=== PATIENT | female | born 1955 | race Caucasian/White ===

== ENCOUNTER → 2019-06-06 | Day surgery (SDC) | payer BC ==
--- NOTE | 2019-06-07 18:28 | PATH ---
Surgical Pathology Report Patient Name: ANN ESPINAL [facility]. Rec. #: [id number] /Age/Gender: 1955 (Age: 64) / F Account: [id number] Location: [facility] Taken: 06/06/2019 Received: 06/06/2019 Reported: 06/07/2019 Physicians: Charanjit Srinivasan M.D. Specimen(s) Received A: RIGHT BREAST SPECIMEN-WITH CALCIFICATIONS B: RIGHT BREAST SPECIMEN-WITHOUT CALCIFICATIONS Clinical History Nonpalpable lesion Suspicious Mammographic findings Final Diagnosis A. BREAST SPECIMEN, RIGHT, WITH CALCIFICATIONS, STEREOTACTIC CORE BIOPSY: BENIGN PREDOMINANTLY FATTY BREAST TISSUE WITH FOCAL FIBROSIS, HISTIOCYTIC INFILTRATE, FOCAL FAT NECROSIS, AND ASSOCIATED MICROCALCIFICATIONS. B. BREAST SPECIMEN, RIGHT, WITHOUT CALCIFICATIONS, STEREOTACTIC CORE BIOPSY: BENIGN PREDOMINANTLY FATTY BREAST TISSUE WITH ASSOCIATED MICROCALCIFICATIONS. Electronically Signed Marilee Deleon M.D. Gross Description A. Received in formalin labeled "right breast specimen with calcifications" are 6 cabrales-yellow, cylindrical portions of fibroadipose tissue ranging from 0.5-1.5 cm in length and averaging 0.3 cm diameter. The specimens are submitted in toto in one cassette. B. Received in formalin labeled "right breast without calcifications" are multiple cabrales-yellow, cylindrical portions of fibroadipose tissue measuring 2.5 x 2 x 0.3 cm in aggregate. The specimens are submitted in toto in one cassette. Time to formalin fixation: 5 minutes Total formalin fixation time: Between 8-9 hours. MLFINN/06/06/2019 ally/06/06/2019
== END | disposition home or self-care (01) ==
LOC: FMAMMOTONE 08:49
PROVIDERS: ATTEND Surgery Surgical Oncology
PROC: 0HBT3ZX Excision of Right Breast, Percutaneous Approach, Diagnostic (ICD-10-PCS; principal; 2019-06-06)
DX: N60.41 Mammary duct ectasia of right breast (principal); N64.1 Fat necrosis of breast; N64.89 Other specified disorders of breast; R92.1 Mammographic calcification found on diagnostic imaging of breast
CPT/HCPCS: 19081; 87899; 88305-TC; A4648

== ENCOUNTER 2021-12-21 08:27 | Day surgery (SDC) | payer BC ==
[2021-12-21] MEDS ORDERED: KETOROLAC TROMETHAMINE 0.5% EYE DROP 1 DROP DROPS ONE (08:38)
[2021-12-21] MEDS ORDERED: TROPICAMIDE 1% OPHTH SOLN 15 ML BOTTLE ONE (08:38)
[2021-12-21] MEDS ORDERED: CYCLOPENTOLATE HCL 1% OPHTH SOLN 2 ML BOTTLE ONE (08:38)
[2021-12-21] MEDS ORDERED: OFLOXACIN 0.3% OPHTHALMIC SOLUTION 5 ML BOTTLE ONE (08:38)
[2021-12-21] MEDS ORDERED: PHENYLEPHRINE 2.5% OPHTH SOLN 15 ML BOTTLE ONE (08:38)
[2021-12-21] MEDS: OFLOXACIN 0.3% OPHTHALMIC SOLUTION 5 ML BOTTLE OS SCH ×3 (08:50→09:00)
[2021-12-21] MEDS: PHENYLEPHRINE 2.5% OPHTH SOLN 15 ML BOTTLE OS SCH ×3 (08:50→09:00)
[2021-12-21] MEDS: KETOROLAC TROMETHAMINE 0.5% EYE DROP 1 DROP DROPS OS SCH ×3 (08:50→09:00)
[2021-12-21] MEDS: CYCLOPENTOLATE HCL 1% OPHTH SOLN 2 ML BOTTLE OS SCH ×3 (08:50→09:00)
[2021-12-21] MEDS: TROPICAMIDE 1% OPHTH SOLN 15 ML BOTTLE OS SCH ×3 (08:50→09:00)
[2021-12-21 08:56] VITALS: BMI 39.3
[2021-12-21] MEDS ORDERED: MIDAZOLAM HCL 2 MG/2 ML SINGLE DOSE VIAL ONE ×2 (10:05)
[2021-12-21] MEDS ORDERED: ACETAMINOPHEN 325 MG TABLET (FP) PO PRN (10:39)
[2021-12-21 10:51] VITALS: TEMP 98.4
[2021-12-21] MEDS ORDERED: POVIDONE-IODINE 5% OPHTHALMIC PREP 30 ML SOLUTION ONE (10:51)
[2021-12-21] MEDS ORDERED: BACITRACIN/POLYMYXIN OPH OINT 3.5 GM TUBE ONE (10:51)
[2021-12-21] MEDS ORDERED: BETAXOLOL HCL 0.25% OPHTHALMIC 10 ML DROPSBTL ONE (10:51)
[2021-12-21] MEDS ORDERED: TETRACAINE 0.5% OPHTH SOLN 2 ML BOTTLE ONE (10:51)
[2021-12-21] MEDS ORDERED: EPI-SHUGARCAINE (EPINEPHRINE 0.025% & LIDOCAINE-PF 0.75%) 4ML ONE (10:51)
[2021-12-21] MEDS ORDERED: ACETYLCHOLINE 1:100 INTRA-OCUL 20 MG/2 ML KIT ONE (10:51)
[2021-12-21] MEDS ORDERED: NEO/POLYMYX B SULF/DEXAMETH OPHTHALMIC 5ML BOTTLE ONE (10:51)
[2021-12-21 11:09] VITALS: BP 147/77; PULSE 78
== END 2021-12-21 11:59 | disposition home or self-care (01) ==
LOC: FASU 08:27
PROVIDERS: ATTEND Ophthalmology
PROC: 08RK3JZ Replacement of Left Lens with Synthetic Substitute, Percutaneous Approach (ICD-10-PCS; principal; 2021-12-21 10:15)
DX: H26.9 Unspecified cataract (principal)
CPT/HCPCS: 66984; V2632

== ENCOUNTER 2022-01-04 06:31 | Day surgery (SDC) | payer BC ==
[2022-01-04 06:51] VITALS: TEMP 97.8; BMI 39.3
[2022-01-04] MEDS ORDERED: PHENYLEPHRINE 2.5% OPHTH SOLN 15 ML BOTTLE ONE (06:54)
[2022-01-04] MEDS ORDERED: KETOROLAC TROMETHAMINE 0.5% EYE DROP 1 DROP DROPS ONE (06:54)
[2022-01-04] MEDS ORDERED: TROPICAMIDE 1% OPHTH SOLN 15 ML BOTTLE ONE (06:54)
[2022-01-04] MEDS ORDERED: OFLOXACIN 0.3% OPHTHALMIC SOLUTION 5 ML BOTTLE ONE (06:54)
[2022-01-04] MEDS ORDERED: CYCLOPENTOLATE HCL 1% OPHTH SOLN 2 ML BOTTLE ONE (06:55)
[2022-01-04] MEDS: CYCLOPENTOLATE HCL 1% OPHTH SOLN 2 ML BOTTLE OD SCH ×3 (06:55→07:05)
[2022-01-04] MEDS: PHENYLEPHRINE 2.5% OPHTH SOLN 15 ML BOTTLE OD SCH ×3 (06:55→07:05)
[2022-01-04] MEDS: OFLOXACIN 0.3% OPHTHALMIC SOLUTION 5 ML BOTTLE OD SCH ×3 (06:55→07:05)
[2022-01-04] MEDS: KETOROLAC TROMETHAMINE 0.5% EYE DROP 1 DROP DROPS OD SCH ×3 (06:55→07:05)
[2022-01-04] MEDS: TROPICAMIDE 1% OPHTH SOLN 15 ML BOTTLE OD SCH ×3 (06:55→07:05)
[2022-01-04] MEDS ORDERED: BETAXOLOL HCL 0.25% OPHTHALMIC 10 ML DROPSBTL ONE (07:04)
[2022-01-04] MEDS ORDERED: BACITRACIN/POLYMYXIN OPH OINT 3.5 GM TUBE ONE (07:04)
[2022-01-04] MEDS ORDERED: EPI-SHUGARCAINE (EPINEPHRINE 0.025% & LIDOCAINE-PF 0.75%) 4ML ONE (07:05)
[2022-01-04] MEDS ORDERED: TETRACAINE 0.5% OPHTH SOLN 2 ML BOTTLE ONE (07:05)
[2022-01-04] MEDS ORDERED: POVIDONE-IODINE 5% OPHTHALMIC PREP 30 ML SOLUTION ONE (07:05)
[2022-01-04] MEDS ORDERED: ACETYLCHOLINE 1:100 INTRA-OCUL 20 MG/2 ML KIT ONE (07:05)
[2022-01-04] MEDS ORDERED: EPINEPHrine/PF 1 MG/1 ML (1:1,000) AMPULE ONE (07:06)
[2022-01-04] MEDS ORDERED: NEO/POLYMYX B SULF/DEXAMETH OPHTHALMIC 5ML BOTTLE ONE (07:06)
[2022-01-04] MEDS ORDERED: MIDAZOLAM HCL 2 MG/2 ML SINGLE DOSE VIAL ONE (07:36)
[2022-01-04] MEDS ORDERED: ACETAMINOPHEN 325 MG TABLET (FP) PO PRN (09:06)
[2022-01-04 09:39] VITALS: BP 145/79; PULSE 68
== END 2022-01-04 09:56 | disposition home or self-care (01) ==
LOC: FASU 06:31
PROVIDERS: ATTEND Ophthalmology
PROC: 08RJ3JZ Replacement of Right Lens with Synthetic Substitute, Percutaneous Approach (ICD-10-PCS; principal; 2022-01-04 08:34)
DX: H26.9 Unspecified cataract (principal)
CPT/HCPCS: 66984; V2632